=== PATIENT | female | born 1980 | race Caucasian/White ===

== ENCOUNTER 2016-09-06 23:31 | Emergency (ER) | payer BC ==
--- NOTE | ~2016-09-06 | CT2 ---
[facility] A Service of [facility] RADIOLOGY TEXT RESULTS PATIENT: LAZARA KIM LOCATION: [facility] : 78 UNIT #: [id number] AGE: [address]: Peggy Callahan MD SEX: F ORDER DR: [id number] [facility] [address] [place], [place] [address] [id number] E MR#: [id number] Acc #: [id number] NAME: LAZARA KIM. : 1980 SEX: F STUDY DATE/TIME: 09/07/2016 0:59 UNIT: [facility] ROOM: STUDY DESCRIPTION: CT Abd and Pelv W Cont Attending Physician: Peggy Callahan M.D. Ordering Physician: Peggy Callahan M.D. Primary Care Physician: Marcos Romero M.D. MEDICAL IMAGING REPORT This report is preliminary unless electronic signature is present EXAM Abdomen and pelvis CT with contrast, 09/07/2016 INDICATIONS Umbilical pain extending into the right lower quadrant since this morning, nausea, tobacco abuse. TECHNIQUE Contrast-enhanced abdomen and pelvis CT was performed. This CT exam was performed with one or more of the following radiation dose reduction techniques: Automatic exposure control, adjustment of mA and/or kV according to patient size, and iterative reconstruction. COMPARISON 03/03/[address] ABDOMEN: Included lung bases are clear, no effusion. Aorta unremarkable. Spleen, adrenal glands, pancreas and gallbladder are unremarkable. Liver unremarkable. Kidneys demonstrate no hydronephrosis. Tiny 3-mm nonobstructing stone in the left kidney. CT PELVIS: Bladder unremarkable. There is a small amount of free fluid in the pelvis. Uterus surgically absent. The appendix is normal. There is inflammatory change of the distal ileum with relative sparing of the terminal ileum. The affected small bowel demonstrates wall thickening and predominance of the small bowel fold pattern. There are also small bowel nodules in the affected distal ileum. There is free fluid in the pelvis and injection of the adjacent small bowel mesentery. The affected small bowel loops are top-normal in diameter, in the range of 2.5 cm. [facility] A Service of [facility] RADIOLOGY TEXT RESULTS PATIENT: LAZARA KIM LOCATION: [facility] : 78 UNIT #: [id number] AGE: [address]: Peggy Callahan MD SEX: F ORDER DR: There is no evidence of upstream bowel obstruction. Imaging features on CT are nonspecific. This may represent sequelae of active enteritis. The fold thickening and nodularity may reflect sequelae of inflammatory change or more confluent areas of edema. Nodularity can be associated with intestinal malabsorption patterns, including celiac disease. There is no documented history of malignancy to suggest metastatic nodularity, and multiple small bowel neoplasms including lymphoma are in the differential, but considered less likely. There is no inguinal adenopathy or fluid collection. Ovaries appear unremarkable. Osseous structures intact. IMPRESSION 1. There is inflammatory change, wall thickening and fold thickening with small bowel fold nodularity involving the distal ileum, with relative sparing of the terminal ileum. There is no associated bowel obstruction. Imaging features are nonspecific and differential considerations are broad. This may reflect an active small bowel enteritis or sequelae of inflammatory bowel disease. The fold thickening and nodularity findings can also be associated with other etiologies, including intestinal malabsorption syndromes, such as celiac disease. Possibility of edema creating the fold thickening and nodularity from active inflammation is also in the differential. In the setting of malignancy, metastatic disease could present in a similar fashion, but that is considered much less likely, as is the possibility of multiple small bowel neoplasms including the possibility of lymphoma. Suggest GI consult and imaging followup to resolution after appropriate therapy. 2. Small amount of free fluid in the pelvis. No drainable fluid collection. 3. The appendix is normal. STAT * RESULT Dictated by... Harjeet Mack M.D. THIS IS AN ELECTRONICALLY VERIFIED REPORT Harjeet Mack M.D. at 09/07/2016 4:26 AM SHALOM/jone TD: 09/07/2016 01:33 JOB #: [id number] MEDICAL IMAGING REPORT COPY
[2016-09-06 21:49] LABS: BASOPHIL% 0.3 % (0-2.5); EOSINOPHIL# 0.1 X10e3 (0-0.7); HEMATOCRIT 45.8 % (35.0-45.0); HEMOGLOBIN 15.1 gm/dL (12.0-16.0); LYMPHOCYTE# 1.3 X10e3 (1.0-3.5); LYMPHOCYTE% 12.9 % (17.0-45.0); MEAN CELL VOLUME 94.5 FL (83-96); MEAN CORPUSCULAR HEMOGLOBIN 31.1 PG (28-34); MEAN PLATELET VOLUME 9.9 FL (6.5-11.5); MONOCYTE# 0.5 X10e3 (0-1.0); MONOCYTE% 5.4 % (3.0-12.0); NEUTROPHIL# 8.2 X10e3 (1.5-7.1); NEUTROPHIL% 80.4 % (40-75); PLATELET COUNT 171 X10e3 (140-420); RED BLOOD COUNT 4.84 X10e (3.90-5.30); RED CELL DISTRIBUTION WIDTH 13.3 % (11.0-15.5); WHITE BLOOD COUNT 10.2 X10e3 (4.0-10.5)
[2016-09-06 21:51] LABS: DIFF IND NO
[2016-09-06 22:02] LABS: ALBUMIN SERUM 4.5 g/dL (3.5-5.0); ALKALINE PHOSPHATASE 48 U/L (32-92); ALT (SGPT) 12 U/L (10-40); AMYLASE 28 U/L (0-46); AST (SGOT) 15 U/L (10-42); BILIRUBIN, DIRECT 0.2 mg/dL (0.0-0.2); BILIRUBIN,INDIRECT 1.3 mg/dL (0.0-0.9); BILIRUBIN,TOTAL 1.5 mg/dL (0.2-2.0); BLOOD UREA NITROGEN 17 mg/dL (9-23); BUN/CREATININE RATIO 18.88; CALCIUM SERUM 8.8 mg/dL (8.4-10.2); CARBON DIOXIDE 25 mmol/L (22-31); CHLORIDE 105 mmol/L (100-111); CREATININE SERUM 0.9 mg/dL (0.6-1.4); GLOM FILT RATE Estimated ABOVE60 mL/min (>60); GLUCOSE FASTING 99 mg/dL (70-110); LIPASE 19 U/L (22-51); POTASSIUM 3.9 mmol/L (3.5-5.1); PROTEIN TOTAL SERUM 7.3 g/dL (6.0-8.3); SODIUM 137 mmol/L (135-145)
[~2016-09-06 23:31] MED LIST: NO MEDICATIONS
[2016-09-07 01:58] LABS: URINE SOURCE CLEAN CATCH
[2016-09-07 02:04] LABS: URINE APPEARANCE CLEAR; URINE BILIRUBIN NEG (NEG); URINE BLOOD NEG (NEG); URINE COLOR YELLOW; URINE GLUCOSE NEG (NEG); URINE KETONE TRACE (NEG); URINE LEUKOCYTE ESTERASE NEG (NEG); URINE NITRATE NEG (NEG); URINE PH 6.5 (5-8); URINE PROTEIN NEG (NEG); URINE SPECIFIC GRAVITY 1.018 (1.003-1.035)
[2016-09-07 02:14] LABS: CULTURE INDICATED? NO
== END 2016-09-07 02:44 | disposition home or self-care (01) ==
LOC: CED 23:31
PROVIDERS: Emergency Medicine
DX: R10.9 Unspecified abdominal pain (principal); Z88.5 Allergy status to narcotic agent
CPT/HCPCS: 36415; 74177; 80048; 80076; 81003; 82150; 83690; 85025; 96361; 96372; 96374; 99284; J0500; J2405; Q9967

== ENCOUNTER → 2016-12-05 | Outpatient (CLI) | payer BC ==
--- NOTE | ~2016-12-05 | MR113 ---
[facility] A Service [facility] RADIOLOGY TEXT RESULTS PATIENT: LAZARA KIM LOCATION: [facility] : 78 UNIT #: [id number] AGE: [address]: Mathew Stoll MD SEX: F ORDER DR: [id number] [place] [id number] O MR#: [id number] Acc #: [id number] NAME: LAZARA KIM. : 1980 SEX: F STUDY DATE/TIME: 12/05/2016 9:48 UNIT: [facility] ROOM: STUDY DESCRIPTION: MR Lumbar Wo Contrast Attending Physician: Mathew Stoll M.D. Referring Physician: Mathew Stoll M.D. Ordering Physician: Mathew Stoll M.D. Primary Care Physician: Marcos Romero M.D. MRI CENTER REPORT This report is preliminary unless electronic signature is present. EXAM Lumbar spine MRI without 12/05/2016 HISTORY Low-back pain, no injury or surgery. Chronic low back pain for 4 years and with bilateral lower extremity radiculopathy. History of cervical cancer. COMMENT MRI of the lumbar spine performed without contrast using routine 1.5T wide-bore imaging technique. COMPARISON STUDIES Comparison study is from 05/30/2014 CT scan and 07/02/2015 lumbar spine MRI. FINDINGS Spine is numbered assuming that S1 is transitional and lumbarized such that the lowest axial imaging is obtained through the S1-2 intervertebral disc. Alignment is normal. Marrow signal intensity is normal. Intervertebral discs are well hydrated. Conus medullaris terminates at upper aspect L2 using this numbering. Numbering is based upon counting down from the last set of ribs. On sagittal imaging at L1-2, no significant abnormality. At L2-3, no significant abnormality. At L3-4, mild bilateral facet hypertrophy. No canal or foraminal impingement. [facility] A Service [facility] RADIOLOGY TEXT RESULTS PATIENT: LAZARA KIM LOCATION: [facility] : 78 UNIT #: [id number] AGE: [address]: Mathew Stoll MD SEX: F ORDER DR: At L4-5, mild bilateral facet degenerative change. No canal or foraminal impingement. At L5-S1, mild bilateral facet degenerative change. Minor posterior disc bulge and effacement of the anterior thecal sac. Subtle mass effect on the right lateral recess. No canal stenosis and no foraminal impingement. S1-2, no significant abnormality. IMPRESSION 1. Spine is numbered assuming that S1 is transitional and lumbarized. 2. No evidence for lumbar canal stenosis. Minor degenerative changes are detailed above. 1. Dictated by... Yarely Nice M.D. THIS IS AN ELECTRONICALLY VERIFIED REPORT Yarely Nice M.D. at 12/06/2016 7:40 AM Ysabel TD: 12/05/2016 17:02 JOB #: [id number] MRI CENTER REPORT Page 1 of 1
== END | disposition home or self-care (01) ==
LOC: SMRI 09:35
DX: M54.5 Low back pain (principal); M47.896 Other spondylosis, lumbar region; M51.86 Other intervertebral disc disorders, lumbar region
CPT/HCPCS: 72148

== ENCOUNTER 2017-02-19 17:32 | Emergency (ER) | payer BC ==
[~2017-02-19] VITALS: Ht 167.6 cm; Wt 63.5 kg
== END 2017-02-19 18:22 | disposition home or self-care (01) ==
LOC: SED 17:32
DX: T78.40XA Allergy, unspecified, initial encounter (principal); F17.200 Nicotine dependence, unspecified, uncomplicated; Z88.5 Allergy status to narcotic agent
CPT/HCPCS: 99283